=== PATIENT | male | born 1965 | race Asian ===

== ENCOUNTER 2023-01-06 10:55 | Outpatient (REF) | payer SELFPAY ==
[2023-01-06 14:06] LABS: Estimated Average Glucose 108 mg/dL; Hemoglobin A1c % 5.4 % (<6.0)
[2023-01-06 14:14] LABS: Alanine Aminotransferase 21 U/L (0-40); Albumin Level 4.4 g/dL (3.5-5.0); Alkaline Phosphatase 54 U/L (39-117); Anion Gap 13 (12-20); Aspartate Amino Transferase 27 U/L (5-37); Bilirubin Total 0.5 mg/dL (0.0-1.0); Blood Urea Nitrogen 13 mg/dL (9-16); Calcium 9.5 mg/dL (8.4-10.2); Carbon Dioxide 25 mmol/L (22-29); Chloride 104 mmol/L (96-108); Cholesterol 160 mg/dL (<200); Estimated Glomerular Filt Rate > 60; Glucose Random 98 mg/dL (60-115); HDL Cholesterol 43 mg/dL (>40); LDL Cholesterol Calculated 100 mg/dL (<100); Potassium 4.2 mmol/L (3.3-5.1); Sodium 138 mmol/L (135-145); Total Protein 7.4 g/dL (6.5-8.0); Triglycerides 87 mg/dL (<150)
[2023-01-06 14:29] LABS: Prostate Specific Antigen Scr 2.09 ng/mL (<0.05-4.0)
[2023-01-06 14:30] LABS: Creatinine Urine 59.25 mg/dL; Microalbumin Urine < 5.0 mg/L
== END 2023-01-06 10:56 | disposition home or self-care (01) ==
LOC: HO.10HDL 10:55
PROVIDERS: Visit Provider Hospitalist
DX: R73.01 Impaired fasting glucose (principal); I10 Essential (primary) hypertension; Z12.5 Encounter for screening for malignant neoplasm of prostate
CPT/HCPCS: 36415; 80053; 80061; 82043; 82570; 83036; 84153

== ENCOUNTER 2023-06-07 22:49 | Emergency (ER) | payer MEDICAID, SELFPAY ==
--- NOTE | ~2023-06-07 | XR_ITS ---
EXAMINATION: XR SHOULDER, RIGHT CLINICAL INFORMATION: Acute pain COMPARISON: None available. TECHNIQUE: Three views of the right shoulder. FINDINGS: No fracture. No dislocation. The glenohumeral joint and acromioclavicular joint is normal. Rounded soft tissue calcification measuring approximately 2 x 1 cm in the soft tissues adjacent to the greater tuberosity consistent with calcific tendinosis/bursitis. XR/XR shoulder RT min 2V IMPRESSION: Soft tissue calcification adjacent to the greater tuberosity consistent with calcific tendinosis/bursitis.
[2023-06-07 23:09] VITALS: BP 129/86; PULSE 76; RESP 18; TEMP 36.8; O2SAT 98; BMI 28.7
--- NOTE | 2023-06-08 00:44 | ED.EXTPRO ---
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 MD Complaint: extremity pain Onset (ago): week(s) (1) Pain Consistency: constant Location: right and upper extremity Quality: aching and constant Radiation: none Relieving factors: rest Exacerbating factors: range of motion and palpation Associated symptoms: denies other symptoms Context: other (overuse) Related Data Previous Rx's Medication Instructions Recorded hydrocodone 5 mg-acetaminophen 325 1 tab PO Q6H PRN pain #10 tabs 06/08/23 mg tablet prednisone 20 mg tablet 40 mg (2 x 20 mg) PO DAILY 5 days 06/08/23 #10 tabs Allergies Allergy/AdvReac Type Severity Reaction Status Date / Time No Known Allergies Allergy Verified 06/07/23 23:18 Review of Systems Review of Systems: Constitutional : No Fever, No Chills ENT/Mouth : No Ear Pain, No Hoarseness, No sore throat Eyes: No Eye Pain, No Swelling, No Redness, No Foreign Body Cardiovascular : No Chest Pain, No SOB Respiratory : No Cough, No Dyspnea Gastrointestinal : No Nausea, No Vomiting, No Diarrhea, No abdominal Pain Genitourinary : No Dysuria, No Hematuria Musculoskeletal : positive joint pain, No Myalgias, No Joint Swelling Skin : No Skin lacerations, No rash Neuro : No Weakness, No Numbness, No Loss of Consciousness, No Dizziness, No Headache All other systems reviewed and are negative [facility] Past Medical History Attestation statement: The following information was validated with the patient. Medical History No pertinent past medical history Social History Social History (Updated 06/08/23 @ 00:55 by Jelena Lara DO) Patient Tobacco Use Status: Never used Tobacco Physical Exam Vital Signs: Vital Signs: Last Vital Signs Temp 98.2 F 06/07/23 23:09 Pulse 76 06/07/23 23:09 Resp 18 06/07/23 23:09 BP 129/86 06/07/23 23:09 Pulse Ox 98 06/07/23 23:09 O2 Del Method Room Air 06/07/23 23:09 BMI result Body Mass Index 28.7 Appearance: Alert. Oriented X3. No acute distress. Eyes: Pupils equal, round and reactive to light. ENT: Pharynx normal. Neck: Normal inspection. Neck supple. CVS: Normal heart rate and rhythm. Pulses normal. Respiratory: No respiratory distress. Breath sounds normal. Abdomen: Soft and nontender. Skin: Skin warm and dry. Normal skin color. Normal skin turgor. Extremities: No lower extremity edema. ttp along R deltoid no redness or swelling, distal NV intact Neuro: Oriented X 3. No motor deficit. No sensory deficit. Medical Decision Making Medical Decision Making MDM Narrative: 58 yo male R hand dominant here with R shoulder pain ttp along R deltoid area distal NV intact no signs of redness or infection suspect tendonitis or overuse injury xrays ordered, pain control, sling short term and steroid burst. Differential Diagnosis Differential Diagnoses: The differential diagnosis associated with the presentation includes overuse injury, arthritis, tendonitis Independent Interpretation I performed an independent interpretation of an: Plain X-Ray (calcific tendonitis) Radiology Impression Discussion of test interpretation with radiology: I have reviewed the radiologist's reading. Prescription Management I considered prescription management with: Pain Medication and Other Discharge Plan Discharge Clinical Impression: Right shoulder tendinitis Patient Disposition: Home, Self-Care Instructions: Calcific Tendinitis (ED) Additional Instructions: return for redness, swelling, numbness or weakness. your xray shows calcific tendonitis and bursitis you should follow up with your doctor and orthopedics you can take motrin for pain if the pain is severe take the hydrocodone wear sling for 3 days to rest the shoulder Prescriptions: New prednisone 20 mg tablet 40 mg PO DAILY 5 Days Qty: 10 0RF hydrocodone-acetaminophen 5-325 mg tablet 1 tab PO Q6H PRN (Reason: pain) Qty: 10 0RF Rx Instructions: partial fill okay; Partial Fill upon patient request. Referrals: Beltran Cat PA-C [[facility] [employer]] - (call to schedule orthopedics anyone in the department)
--- NOTE | 2023-06-08 00:45 | PC.NURSE ---
MD in triage assessing patient. PLanning for DC from triage.
--- NOTE | 2023-06-08 00:54 | PC.NURSE ---
Sling applied to R arm, good fit, pt educated, no complications.
== END 2023-06-08 01:05 | disposition home or self-care (01) ==
PROVIDERS: Emergency Provider Emergency Medicine
DX: M75.31 Calcific tendinitis of right shoulder (principal)
CPT/HCPCS: 73030; 99282; 99283

== ENCOUNTER 2023-06-22 07:58 | Outpatient (AMB) | payer MEDICAID, SELFPAY ==
--- NOTE | 2023-06-22 08:20 | A.OFFVIS_ITS ---
Intake Intake Visit Reasons: New Pt - right shoulder pain Intake Note: Lisa is a 58 year old right hand dominant male who presents today as a new patient for a evaluation of his right shoulder. Patient reports ongoing pain for 3 weeks, however his pain has been consistently there for a year. He states his pain is more focused on top of the shoulder. Pain is worse with movement. Allergies No Known Allergies Allergy (Verified 06/22/23 08:21) Medication List - Last Reconciled 06/22/23 by Beltran Cat PA-C amlodipine 10 mg PO DAILY atorvastatin 10 mg PO DAILY lisinopril 20 mg PO DAILY prednisone 40 mg (2 x 20 mg) PO DAILY 5 days HPI New Pt - right shoulder pain HPI Details 58-year-old right hand dominant male who presents to the office today for evaluation of right shoulder pain for about a year which has been worsening for the past 3 weeks. He states he has pain at the top of his shoulder which is aggravated with movement. He was seen in the ED on 06/07/23, xrays obtained and they gave him prednisone which did help the pain. He states the pain was along the top of the shoulder which radiated down to the deltoid region. Denies weakness. 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 [facility] Medical History No pertinent past medical history Social History (Updated 06/22/23 @ 08:23 by [place]) Alcohol intake: never Patient Tobacco Use Status: Never used Tobacco Current occupation: right hand dominant/ life stock Review of Systems Const All systems reviewed & are unremarkable except as noted in HPI and below Physical Exam Const General: cooperative, healthy appearing, comfortable, no acute distress, well developed and alert Orientation/consciousness: patient oriented x3 HEENT Head: Yes normal to inspection, Yes normocephalic and Yes atraumatic Eyes General: appearance normal, both eyes and all related structures Resp Effort & Inspection: normal respiratory effort and able to speak in complete sentences Cardio Rate: regular rate Peripheral pulses: Peripheral pulses 2+ throughout GI Palpation (GI): Soft to palpation Skin Lesions: no lesions Rashes: no rashes Neuro General: patient oriented x3 Extrem Other: Right shoulder normal to inspection. No specific tenderness to palpation at this time. Forward flexion to 175, external rotation to 90, internal rotation to S1. 5/5 RTC strength. Negative Rincon and cross body abduction. NVI. Results Reviewed Results Reviewed: xrays of the right shoulder obtained in the ED on 06/07/23 show calcific tendonitis. Assessment & Plan Assessment & Plan (1) Right shoulder tendinitis: Code(s): M77.8 - Other enthesopathies, not elsewhere classified Plan He will continue to modify activities as needed if he develops any discomfort, otherwise he will increase activity as tolerated. If symptoms persist or worsens, patient will contact the office for a steroid injection, otherwise fo llow-up as needed. Patient Instructions: Scribed for Beltran Cat PA-C, by Aguilar Cha medical charge entry specialist, on 06/22/2023 at 8:15 AM EST. I, Beltran Cat PA-C, have personally reviewed and agree with the information entered by the scribe. Coding Level of Care Code New Pt Level 3 (55124) Diagnoses Right shoulder tendinitis M77.8
== END 2023-06-22 08:42 | disposition home or self-care (01) ==
PROVIDERS: Visit Provider Physician Assistant
DX: M77.8 Other enthesopathies, not elsewhere classified (principal)
CPT/HCPCS: 99203

== ENCOUNTER → 2023-06-22 07:58 | Outpatient (BNVA) | payer MEDICAID, SELFPAY | PROVIDERS: Visit Provider Physician Assistant | DX: M70.811 Other soft tissue disorders related to use, overuse and pressure, right shoulder (principal); Z79.52 Long term (current) use of systemic steroids | CPT/HCPCS: 99202; 99212 ==

== ENCOUNTER 2023-08-19 07:57 | Outpatient (REF) | payer OTHER, SELFPAY ==
[2023-08-19 10:44] LABS: Estimated Average Glucose 114 mg/dL; Hemoglobin A1c % 5.6 % (<6.0)
[2023-08-19 10:52] LABS: Alanine Aminotransferase 21 U/L (0-40); Albumin Level 4.3 g/dL (3.5-5.0); Alkaline Phosphatase 66 U/L (39-117); Anion Gap 12 (12-20); Aspartate Amino Transferase 40 U/L (5-37); Bilirubin Total 0.3 mg/dL (0.0-1.0); Blood Urea Nitrogen 20 mg/dL (9-16); Calcium 9.2 mg/dL (8.4-10.2); Carbon Dioxide 23 mmol/L (22-29); Chloride 106 mmol/L (96-108); Cholesterol 149 mg/dL (<200); Estimated Glomerular Filt Rate > 60; Glucose Random 93 mg/dL (60-115); HDL Cholesterol 44 mg/dL (>40); LDL Cholesterol Calculated 96 mg/dL (<100); Potassium 4.4 mmol/L (3.3-5.1); Sodium 137 mmol/L (135-145); Triglycerides 47 mg/dL (<150)
[2023-08-19 11:07] LABS: Creatinine Urine 138.96 mg/dL; Microalbum/Creatinine Ratio Ur 7.9 ug/mg cr (<30)
[2023-08-19 11:19] LABS: Prostate Specific Antigen 2.04 ng/mL (<0.05-4.0)
== END 2023-08-19 07:58 | disposition home or self-care (01) ==
LOC: HO.10HDL 07:57
PROVIDERS: Visit Provider Hospitalist
DX: Z12.5 Encounter for screening for malignant neoplasm of prostate (principal); I10 Essential (primary) hypertension; R73.01 Impaired fasting glucose
CPT/HCPCS: 36415; 80053; 80061; 82043; 82570; 83036; 84153